=== PATIENT | male | born 1990 | race Caucasian/White ===

== ENCOUNTER 2018-08-26 00:49 | Emergency (ER) | payer OTHER ==
[~2018-08-26] VITALS: Ht 167.6 cm; Wt 99.8 kg
[~2018-08-26 00:49] MED LIST: AMOXIL500 MG PO; AUGMENTIN 875875 MG PO; BACTRIM DS 8001 TA1 PO; BIAXIN500 MG PO; CIPRO500 MG PO; CLARITIN-D 12 H1 TAB PO; CLARITIN10 MG PO; FLONASE ALLERG9.9 ML NAS; KEFLEX500 MG PO; LIDEX 0.05% CRE15 GM T; MOTRIN600 MG PO; MOTRIN800 MG PO; NKHM; PREDNISONE10 MG PO; ROBITUSSIN AC 10 MG/ PO; SEPTRA DS 800 M1 TAB PO; ZITHROMAX Z PA250 MG PO
[2018-08-26] MEDS ORDERED: CYCLOBENZAPRINE10 MG PO (01:03)
[2018-08-26] MEDS ORDERED: ANAPROX DS550 MG PO (01:03)
== END 2018-08-26 03:04 | disposition home or self-care (01) ==
LOC: ED 00:49
DX: M54.5 Low back pain (principal); Z79.899 Other long term (current) drug therapy; V89.2XXA Person injured in unspecified motor-vehicle accident, traffic, initial encounter; Y93.89 Activity, other specified; Y92.488 Other paved roadways as the place of occurrence of the external cause; Y99.8 Other external cause status

== ENCOUNTER 2021-06-25 17:19 | Emergency (ER) | payer SELFPAY ==
[~2021-06-25] VITALS: Ht 172.7 cm; Wt 113.4 kg
[~2021-06-25 17:19] MED LIST changes: +ANAPROX DS550 MG PO; +CYCLOBENZAPRINE10 MG PO
[2021-06-25 18:36] LABS: BASO % 0.2 % (0.0-1.0); HEMATOCRIT 41.2 % (42.0-52.0); LYMPH # 1.3 10*3/uL (1.3-4.4); LYMPH % 22.4 % (27.0-41.0); MEAN CELL VOLUME 85.3 fl (80.0-94.0); MEAN CORPUSCULAR HGB 29.6 pg (27.0-31.0); MEAN CORPUSCULAR HGB CONC 34.7 g/dl (33.0-37.0); MEAN PLATELET VOLUME 10.1 fl (9.6-12.3); MONO # 0.5 10*3/uL (0.1-1.0); MONO % 8.2 % (3.0-9.0); NEUT # 3.9 10*3/uL (2.3-7.9); PLATELET COUNT AUTOMATED 196 10*3/uL (130-400); RED BLOOD COUNT 4.83 10*6/uL (4.50-5.90); WHITE BLOOD COUNT 5.6 10*3/uL (4.8-10.8)
[2021-06-25 18:52] LABS: ALBUMIN 3.8 gm/dl (3.1-4.5); ALKALINE PHOSPHATASE 66 U/L (45-117); BUN 14 mg/dl (7-24); CHLORIDE 99 mmol/L (98-107); CREATININE 1.39 mg/dL (0.70-1.30); LIPASE 144 U/L (73-393); POTASSIUM 3.9 mmol/L (3.5-5.1); SGOT/AST 130 IU/L (3-35); SGPT/ALT 111 U/L (12-78); SODIUM 133 mmol/L (136-145); TOTAL PROTEIN 8.5 gm/dL (6.4-8.2)
[2021-06-25 18:53] LABS: TROPONIN I < 0.015 ng/ml (<0.045)
[2021-06-25] MEDS ORDERED: TESSALON PERLE100 MG PO (20:06)
== END 2021-06-25 19:30 ==
LOC: ED 17:19
PROVIDERS: Nurse Practitioner Family
DX: U07.1 COVID-19 (principal)

== ENCOUNTER 2021-06-29 06:25 | Inpatient (IN) | payer SELFPAY ==
[~2021-06-29] VITALS: Ht 172.7 cm; Wt 105.8 kg
[~2021-06-29 06:25] MED LIST changes: +TESSALON PERLE100 MG PO
[2021-06-29 06:52] VITALS: BP 118/67
[2021-06-29 07:09] LABS: HEMATOCRIT 40.4 % (42.0-52.0); MEAN CELL VOLUME 85.1 fl (80.0-94.0); MEAN CORPUSCULAR HGB 29.7 pg (27.0-31.0); MEAN CORPUSCULAR HGB CONC 34.9 g/dl (33.0-37.0); MEAN PLATELET VOLUME 10.8 fl (9.6-12.3); PLATELET COUNT AUTOMATED 266 10*3/uL (130-400); RED BLOOD COUNT 4.75 10*6/uL (4.50-5.90); WHITE BLOOD COUNT 6.1 10*3/uL (4.8-10.8)
[2021-06-29 07:18] LABS: ALBUMIN 3.2 gm/dl (3.1-4.5); ALKALINE PHOSPHATASE 54 U/L (45-117); BUN 18 mg/dl (7-24); CHLORIDE 101 mmol/L (98-107); CREATININE 1.04 mg/dL (0.70-1.30); POTASSIUM 3.9 mmol/L (3.5-5.1); SGOT/AST 76 IU/L (3-35); SGPT/ALT 71 U/L (12-78); SODIUM 133 mmol/L (136-145); TOTAL PROTEIN 8.3 gm/dL (6.4-8.2)
[2021-06-29 07:36] LABS: PLATELET SUFFICIENCY NORMAL (NORMAL); TOTAL CELLS COUNTED 100 #CELLS
[2021-06-29 08:28] LABS: ACT PARTIAL THROMBO TIME 29.9 SECONDS (20.0-32.1)
[2021-06-29 08:33] LABS: LDH 559 U/L (87-241)
[2021-06-29 08:56] LABS: CPK 1256 U/L (39-308)
[2021-06-29 09:29] LABS: ABG BASE EXCESS 0.8 mmol/L (-2.0-2.0); ARTERIAL BLOOD GAS PH 7.475 (7.35-7.45); ARTERIAL BLOOD GAS PO2 70.9 (80-90)
[2021-06-29 09:30] VITALS: BP 139/78
[2021-06-29 10:35] VITALS: BP 120/60
[2021-06-29 16:00] VITALS: BP 144/80
[2021-06-29 20:00] VITALS: BP 130/85
[2021-06-30 00:03] VITALS: BP 129/79
[2021-06-30 07:12] LABS: HEMATOCRIT 41.3 % (42.0-52.0); MEAN CELL VOLUME 87.9 fl (80.0-94.0); MEAN CORPUSCULAR HGB 29.8 pg (27.0-31.0); MEAN CORPUSCULAR HGB CONC 33.9 g/dl (33.0-37.0); PLATELET COUNT AUTOMATED 245 10*3/uL (130-400); RED CELL DISTRI WIDTH 12.3 % (0-14.5); WHITE BLOOD COUNT 6.1 10*3/uL (4.8-10.8)
[2021-06-30 08:00] VITALS: BP 121/71
[2021-06-30 08:08] LABS: BASOPHILS 1 % (0-1); PLATELET SUFFICIENCY NORMAL (NORMAL); TOTAL CELLS COUNTED 100 #CELLS
[2021-06-30 08:09] LABS: FERRITIN 1088.7 ng/mL (22.0-322.0); VITAMIN D, 25-HYDROXY 25.5 ng/mL (30-100)
[2021-06-30 08:50] LABS: ABG BASE EXCESS 0.8 mmol/L (-2.0-2.0); ARTERIAL BLOOD GAS PH 7.467 (7.35-7.45); ARTERIAL BLOOD GAS PO2 62.4 (80-90)
[2021-06-30 12:00] VITALS: BP 118/74
[2021-06-30 14:00] VITALS: BP 115/83
[2021-06-30 20:00] VITALS: BP 131/76
[2021-07-01 04:00] VITALS: BP 125/76
[2021-07-01 06:19] LABS: HEMATOCRIT 39.4 % (42.0-52.0); MEAN CORPUSCULAR HGB 29.7 pg (27.0-31.0); MEAN CORPUSCULAR HGB CONC 34.5 g/dl (33.0-37.0); MEAN PLATELET VOLUME 10.6 fl (9.6-12.3); PLATELET COUNT AUTOMATED 274 10*3/uL (130-400); RED BLOOD COUNT 4.58 10*6/uL (4.50-5.90); WHITE BLOOD COUNT 7.6 10*3/uL (4.8-10.8)
[2021-07-01 07:23] LABS: ATYPICAL LYMPHS 6 % (0-0); PLATELET SUFFICIENCY NORMAL (NORMAL); TOTAL CELLS COUNTED 100 #CELLS
[2021-07-01 08:00] VITALS: BP 121/60
[2021-07-01 12:00] VITALS: BP 124/76
[2021-07-01 12:36] LABS: ALBUMIN 2.8 gm/dl (3.1-4.5); ALKALINE PHOSPHATASE 48 U/L (45-117); BUN 21 mg/dl (7-24); CHLORIDE 105 mmol/L (98-107); CREATININE 0.95 mg/dL (0.70-1.30); SGOT/AST 51 IU/L (3-35); SGPT/ALT 81 U/L (12-78); SODIUM 138 mmol/L (136-145); TOTAL PROTEIN 7.5 gm/dL (6.4-8.2)
[2021-07-01 16:00] VITALS: BP 125/76
[2021-07-01 20:00] VITALS: BP 144/86
[2021-07-02] VITALS: BP 135/76
[2021-07-02 06:13] LABS: HEMATOCRIT 38.6 % (42.0-52.0); MEAN CELL VOLUME 85.8 fl (80.0-94.0); MEAN CORPUSCULAR HGB 29.3 pg (27.0-31.0); MEAN CORPUSCULAR HGB CONC 34.2 g/dl (33.0-37.0); MEAN PLATELET VOLUME 10.3 fl (9.6-12.3); PLATELET COUNT AUTOMATED 297 10*3/uL (130-400); RED CELL DISTRI WIDTH 11.9 % (0-14.5); WHITE BLOOD COUNT 7.4 10*3/uL (4.8-10.8)
[2021-07-02 06:27] LABS: ALBUMIN 2.9 gm/dl (3.1-4.5); BUN 18 mg/dl (7-24); CHLORIDE 104 mmol/L (98-107); POTASSIUM 4.1 mmol/L (3.5-5.1); SGOT/AST 54 IU/L (3-35); SGPT/ALT 93 U/L (12-78); SODIUM 139 mmol/L (136-145); TOTAL PROTEIN 7.4 gm/dL (6.4-8.2)
[2021-07-02 06:31] LABS: ALKALINE PHOSPHATASE 51 U/L (45-117); LDH 299 U/L (87-241)
[2021-07-02 06:34] LABS: CPK 107 U/L (39-308)
[2021-07-02 07:39] LABS: ATYPICAL LYMPHS 4 % (0-0); PLATELET SUFFICIENCY NORMAL (NORMAL); TOTAL CELLS COUNTED 100 #CELLS
[2021-07-02 08:00] VITALS: BP 123/75
[2021-07-02] MEDS ORDERED: DECADRON6 M1 PO (11:25)
== END 2021-07-02 12:28 | disposition home or self-care (01) | DRG 177 ==
LOC: ED 06:25 → EDHOLD 07:39 → 4E 07:39 → EDHOLD 07:42 → 4E 09:04
PROVIDERS: Emergency Medicine; Internal Medicine Critical Care Medicine; Registered Nurse; ADMIT Internal Medicine; ATTEND Internal Medicine
PROC: XW033E5 Introduction of Remdesivir Anti-infective into Peripheral Vein, Percutaneous Approach, New Technology Group 5 (ICD-10-PCS; principal; 2021-06-30)
DX: U07.1 COVID-19 (principal); J12.82 Pneumonia due to coronavirus disease 2019; J96.01 Acute respiratory failure with hypoxia; E87.1 Hypo-osmolality and hyponatremia; E44.0 Moderate protein-calorie malnutrition; E66.01 Morbid (severe) obesity due to excess calories; Z79.899 Other long term (current) drug therapy; Z68.35 Body mass index [BMI] 35.0-35.9, adult